=== PATIENT | female | born 1945 | race Asian ===

== ENCOUNTER 2016-06-08 17:52 | Emergency (ER) | payer MEDICARE, MEDICAID ==
[~2016-06-08] VITALS: Ht 160 cm; Wt 78.9 kg
[~2016-06-08 17:52] MED LIST: AMLO-147 PO; BACL10TA PO; CLOP75TA4 PO; DOXE10CA PO; HYDR-902 PO; HYDR200T39 PO; METF500T4 PO; ONDA8TAB83 PO; PANT40TA4 PO; PRAV40TA76 PO; PRED1TAB2 PO
[2016-06-08 17:55] VITALS: Ht 160 cm; Wt 78.9 kg
[2016-06-08] MEDS ORDERED: KETOROLAC 30 MG INJ IM STA (19:55)
--- NOTE | 2016-06-08 20:44 | RADRPT ---
PROCEDURE: X-ray right ankle CLINICAL INDICATION: Fall with pain in the right ankle. TECHNIQUE: 3 views right ankle. COMPARISON: None. FINDINGS: Intra-articular oblique fracture at the distal fibular metaphysis, without significant displacement. No evident fracture in the distal fibula or remaining osseous structures of the right ankle or par tially visualized right foot. Demineralization limits evaluation of fine osseous detail. CT examination may be of further use. Soft tissue swelling over the bilateral ankle. IMPRESSION: Oblique fracture at the distal right tibial metaphysis, with likely intra-articular component. RPTAT: [facility] Physician Kiel Date Time Electronically viewed and signed by Physician Kiel on 06/08/2016 20:44 RS/
[2016-06-08] MEDS ORDERED: FAMO20TA18 PO (20:47)
--- NOTE | 2016-06-08 20:47 | RADRPT ---
PROCEDURE: X-ray right foot CLINICAL INDICATION: Fall with injury to right ankle and foot TECHNIQUE: 3 views right foot COMPARISON: None FINDINGS: Demineralization limits evaluation of fine osseous detail. Soft tissue swelling over the forefoot. Question nondisplaced fracture of the proximal metaphysis of the fifth proximal phalanx. Otherwise, no evident acute fracture dislocation in the foot. Oblique fracture at the distal right tibial met aphysis on today's ankle series is not fully appreciated on this plain film examination of the right foot. IMPRESSION: 1. Question nondisplaced fracture at the proximal metaphysis of the fifth proximal phalanx. 2. Soft tissue swelling over the right forefoot, otherwise, without evident acute fracture in the f oot. RPTAT: [facility] Physician Kiel Date Time Electronically viewed and signed by Physician Kiel on 06/08/2016 20:47 RS/
[2016-06-08 21:14] VITALS: BP 124/51; PULSE 95; RESP 21
[2016-06-08] MEDS ORDERED: HYDR-906 PO (21:40)
[2016-06-08] MEDS ORDERED: NAPR-688 PO (21:40)
--- NOTE | 2016-06-08 21:58 | ERD ---
ER Documentation Chief Complaint Date/Time DATE: 06/08/16 TIME: 21:52 Chief Complaint RIGHT ANKLE PAIN AFTER A [facility] FALL HPI 70-year-old female comes in for right ankle pain after she suffered a rolling action of her ankle. States that that ankle often feels weak. She is on prednisone for lupus. She did fall but denies any head injury denies pain any other part of her body. ROS All systems reviewed and are negative except as per history of present illness. Medications Home Meds Active Scripts Hydrocodone/Acetaminophen ([place] 5-325 Tablet) 1 Each Tablet, 1 EACH PO Q6, #20 TAB Prov:ESTELLE RUBIN DO 06/08/16 Naproxen* (Naproxen*) 500 Mg Tablet, 500 MG PO BID Y for PAIN, #20 TAB Prov:ESTELLE RUBIN DO 06/08/16 Reported Medications Famotidine* (Famotidine*) 20 Mg Tablet, 20 MG PO BID, #60 TAB 06/08/16 Clopidogrel Bisulfate* (Clopidogrel Bisulfate*) 75 Mg Tablet, 75 MG PO DAILY, # 30 TAB 12/15/15 Hydroxychloroquine Sulfate* (Hydroxychloroquine Sulfate*) 200 Mg Tablet, 400 MG PO DAILY, TAB 12/15/15 Metformin Hcl* (Metformin Hcl*) 500 Mg Tablet, 500 MG PO WITH BREAKFAST DINNE, # 60 TAB 12/15/15 Amlodipine Besylate* (Amlodipine Besylate*) 10 Mg Tablet, 10 MG PO DAILY, #30 TAB 12/15/15 Ondansetron Hcl* (Ondansetron Hcl*) 8 Mg Tablet, 8 MG PO Q8 Y for PRN, TAB 12/15/15 Pravastatin Sodium* (Pravastatin Sodium*) 40 Mg Tablet, 40 MG PO DAILY, TAB 12/15/15 Prednisone* (Prednisone*) 1 Mg Tablet, 2 MG PO DAILY, TAB 12/15/15 Baclofen* (Baclofen*) 10 Mg Tablet, 10 MG PO TID 07/07/09 Discontinued Reported Medications Doxepin Hcl* (Doxepin Hcl*) 10 Mg Capsule, 10 MG PO HS, CAP 12/15/15 Pantoprazole* (Pantoprazole*) 40 Mg Tablet.dr, 40 MG PO DAILY, TAB 12/15/15 Discontinued Scripts Hydrocodone/Acetaminophen ([place] 10-325 Tablet) 1 Each Tablet, 1 TAB PO Q6H Y for PAIN, #20 TAB Prov:JACK MCKENZIE DO 12/15/15 Allergies Allergies: Coded Allergies: No Known Drug Allergy (Verified Allergy, Unknown, 12/15/15) PMhx/Soc History of Surgery: Yes (hip sx) Anesthesia Reaction: No 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 Skin: No petechiae or rashes Ext: No cyanosis, mild right ankle edema with tenderness to palpation of lateral malleolus area. This the pulses intact with good capillary refill. Neur: Awake and alert and oriented 3, no focal deficits Results 24 hrs Current Medications Medications (Trade) Dose Ordered Sig/Wen Route PRN Reason Start Time Stop Time Status Last Admin Dose Admin Ketorolac Tromethamine (Toradol) 30 mg ONCE STAT IM 06/08/16 19:55 06/08/16 19:56 DC 06/08/16 20:03 Procedures/MDM Distal tibial fracture. She is on chronic but prednisone which likely decrease her bone density along this fracture. The fracture is not significantly displaced. Splint was placed in the emergency room and patient is still comfortable. She is also given a IM injection of 30 mg Toradol which showed relieve her pain. Instructed that she should not weight-bear she is to follow- up with an orthopedist within the next week. Through Her primary care doctor. Patient has her own wheelchair and crutches. Full x-ray interpretation: I see no acute fracture dislocation or foreign bodies Ankle x-ray interpretation: Distal partial spiral fracture of the tibia with very minimal displacement. No dislocation. ER splint application note: Posterior mold sterile splint was placed. Fiberglass material was used. Patient had a position of comfort after application with good immobilization. Performed a neurovascular and motor assessment afterward and patient was completely intact. She tolerated the procedure well or no complications. Departure Diagnosis: Primary Impression: Fracture of distal end of tibia Condition: Stable Patient Instructions: Fracture, Lower Extremity Additional Instructions: Call your primary care doctor TOMORROW for an appointment during the next 1-2 days. Obtain a referral for an ORTHOPEDIST within the next week. See the doctor sooner or return here if your condition worsens before your appointment time. ESTELLE RUBIN DO Jun 08, 2016 21:58
== END 2016-06-08 21:51 | disposition home or self-care (01) ==
LOC: E/R 17:52
DX: S82.301A Unspecified fracture of lower end of right tibia, initial encounter for closed fracture (principal); I10 Essential (primary) hypertension; E11.9 Type 2 diabetes mellitus without complications; W18.39XA Other fall on same level, initial encounter; Y92.9 Unspecified place or not applicable; Z79.01 Long term (current) use of anticoagulants; Z79.84 Long term (current) use of oral hypoglycemic drugs
CPT/HCPCS: 29515; 73610; 73630; 96372; 99284; J1885